=== PATIENT | female | born 1970 | race African-American/Black ===

== ENCOUNTER 2019-06-01 08:19 | Emergency (ER) | payer OTHER ==
[~2019-06-01] VITALS: Ht 175.3 cm; Wt 105.2 kg
[2019-06-01] MEDS ORDERED: IRON325 PO (08:23)
[2019-06-01] MEDS ORDERED: VITAMIN D400 UNI2 PO (08:24)
[2019-06-01] MEDS ORDERED: KEFLEX500 M1 PO (10:55)
[2019-06-01 11:10] VITALS: BP 118/76
== END 2019-06-01 11:10 | disposition home or self-care (01) ==
LOC: ER 08:19
DX: L03.115 Cellulitis of right lower limb (principal); Z90.49 Acquired absence of other specified parts of digestive tract; Z90.89 Acquired absence of other organs; Z98.890 Other specified postprocedural states; Z95.818 Presence of other cardiac implants and grafts